=== PATIENT | female | born 1940 | race Caucasian/White ===

== ENCOUNTER 2018-01-24 13:38 | Emergency (ER) | payer MEDICARE ==
[~2018-01-24] VITALS: Ht 157.5 cm; Wt 62.3 kg
[2018-01-24 13:42] VITALS: TEMP 97.8
[2018-01-24] MEDS ORDERED: PROZAC 20MG20 MG PO (14:12)
[2018-01-24] MEDS ORDERED: NAPROSYN500 MG PO (14:12)
[2018-01-24] MEDS ORDERED: ASPIRIN 81M81 MG/TA2 PO (14:13)
[2018-01-24] MEDS ORDERED: ZYRTEC 10MG10 MG PO (14:13)
[2018-01-24] MEDS ORDERED: VALIUM 5MG T5 MG/TAB PO (14:14)
[2018-01-24 15:10] LABS: BASO # 0.1 (0.0-0.2); BASO % 1.2 % (0.0-2.0); EOS # 0.3 (0.0-0.7); EOS % 4.3 % (0-4.0); HEMOGLOBIN 13.1 g/dl (12.5-16.0); LYMPH # 2.7 (1.2-3.4); LYMPH % 34.7 % (20.0-51.0); MEAN CELL VOLUME 93 fl (80.0-100.0); MEAN CORPUSCULAR HEMOGLOBIN 32 pg (27.0-31.0); MEAN CORPUSCULAR HGB CONC 35 g/dl (33.0-37.0); MEAN PLATELET VOLUME 10.8 fl (7.4-10.4); MONO # 0.6 (0.1-0.6); MONO % 7.5 % (1.7-9.3); PLATELET COUNT 232 K/mm3 (130-400); RED BLOOD COUNT 4.09 M/mm3 (4.10-5.30); REDCELL DISTRIBUTION WIDTH-CV 12.2 % (11.5-14.5)
[2018-01-24 15:24] LABS: ALANINE AMINOTRANSFERASE 33 U/L (9-52); ALBUMIN 3.9 gm/dL (3.5-5.0); ALKALINE PHOSPHATASE 73 U/L (50-136); ANION GAP 11 mmol/L (7-16); AST,SGOT 29 U/L (15-37); BILIRUBIN,TOTAL 0.5 mg/dL (0.0-1.0); BLOOD UREA NITROGEN 15 mg/dL (7-17); CALCIUM 9.6 mg/dL (8.4-10.2); CARBON DIOXIDE 23 mmol/L (22-30); CHLORIDE 101 mmol/L (98-107); CREATININE, serum 0.64 mg/dL (0.52-1.25); GLUCOSE 91 mg/dL (74-106); POTASSIUM 3.8 mmol/L (3.4-5.0); SODIUM 135 mmol/L (137-145); TOTAL PROTEIN 7.5 gm/dL (6.4-8.2)
[2018-01-24 15:27] LABS: C-REACTIVE PROTEIN < 0.5 mg/dL (0.0-0.9)
[2018-01-24 15:32] LABS: ERYTHROCYTE SEDIMENTATION RATE 9 mm/hr (0-30); TROPONIN-I < 0.012 ng/mL (0.000-0.034)
[2018-01-24 17:34] VITALS: BP 1471/99; PULSE 80
== END 2018-01-24 17:36 | disposition home or self-care (01) ==
LOC: COL.ER 13:38
PROVIDERS: Emergency Medicine
DX: M54.12 Radiculopathy, cervical region (principal); F32.9 Major depressive disorder, single episode, unspecified; F41.9 Anxiety disorder, unspecified; Z79.82 Long term (current) use of aspirin

== ENCOUNTER 2018-03-31 10:54 | Emergency (ER) | payer MEDICARE ==
[~2018-03-31] VITALS: Ht 157.5 cm; Wt 61.4 kg
[~2018-03-31 10:54] MED LIST: ASPIRIN 81M81 MG/TA2 PO; NAPROSYN500 MG PO; PROZAC 20MG20 MG PO; VALIUM 5MG T5 MG/TAB PO; ZYRTEC 10MG10 MG PO
[2018-03-31 11:29] LABS: BASO # 0.1 (0.0-0.2); BASO % 1.9 % (0.0-2.0); EOS # 0.3 (0.0-0.7); GRAN # 2.2 (1.4-6.5); GRAN % 39.1 % (42.2-75.2); HEMATOCRIT 38.7 % (37.0-47.0); HEMOGLOBIN 13.3 g/dl (12.5-16.0); LYMPH # 2.4 (1.2-3.4); LYMPH % 42.4 % (20.0-51.0); MEAN CELL VOLUME 92 fl (80.0-100.0); MEAN CORPUSCULAR HEMOGLOBIN 32 pg (27.0-31.0); MEAN CORPUSCULAR HGB CONC 34 g/dl (33.0-37.0); MEAN PLATELET VOLUME 10.3 fl (7.4-10.4); MONO # 0.6 (0.1-0.6); MONO % 10.4 % (1.7-9.3); PLATELET COUNT 263 K/mm3 (130-400); REDCELL DISTRIBUTION WIDTH-CV 12.7 % (11.5-14.5)
[2018-03-31 11:39] LABS: ALBUMIN 4.1 gm/dL (3.5-5.0); BILIRUBIN,TOTAL 0.6 mg/dL (0.0-1.0); CALCIUM 9.5 mg/dL (8.4-10.2); CREATININE, serum 0.6 mg/dL (0.52-1.25); POTASSIUM 4.1 mmol/L (3.4-5.0); TOTAL PROTEIN 8.5 gm/dL (6.4-8.2)
[2018-03-31] MEDS ORDERED: ZOFRAN ODT4 MG PO (12:24)
[2018-03-31 12:56] VITALS: BP 143/77
[2018-03-31 13:20] VITALS: PULSE 80; TEMP 97.6
== END 2018-03-31 13:18 | disposition home or self-care (01) ==
LOC: COL.ER 10:54
PROVIDERS: Emergency Medicine
DX: S00.03XA Contusion of scalp, initial encounter (principal); W01.10XA Fall on same level from slipping, tripping and stumbling with subsequent striking against unspecified object, initial encounter

== ENCOUNTER 2018-03-31 18:02 | Emergency (ER) | payer MEDICARE ==
[~2018-03-31] VITALS: Ht 157.5 cm; Wt 61.4 kg
[~2018-03-31 18:02] MED LIST changes: +ZOFRAN ODT4 MG PO
[2018-03-31 18:16] VITALS: BP 150/72; TEMP 98.1
[2018-03-31 21:24] VITALS: PULSE 72
== END 2018-03-31 20:30 | disposition home or self-care (01) ==
LOC: COL.ER 18:02
DX: S80.12XA Contusion of left lower leg, initial encounter (principal); R11.0 Nausea; F32.9 Major depressive disorder, single episode, unspecified; W10.9XXA Fall (on) (from) unspecified stairs and steps, initial encounter; Y92.22 Religious institution as the place of occurrence of the external cause

== ENCOUNTER → 2018-04-16 | Outpatient (CLI) | payer MEDICARE | LOC: MC.RAD 14:00 | DX: Z12.31 Encounter for screening mammogram for malignant neoplasm of breast (principal) ==

== ENCOUNTER 2018-04-29 10:00 | Outpatient (RCR) | payer MEDICARE | END 2018-05-14 | disposition home or self-care (01) | LOC: MKS.ESL.PT | DX: R53.1 Weakness (principal) | CPT/HCPCS: G8978-GP; G8979-GP ==

== ENCOUNTER → 2019-12-26 | Outpatient (CLI) | payer MEDICARE | LOC: MC.RAD 11-24 15:30 | DX: Z12.31 Encounter for screening mammogram for malignant neoplasm of breast (principal) ==

== ENCOUNTER 2021-02-18 10:21 | Outpatient (RCR) | payer MEDICARE ==
[~2021-02-18 10:21] MED LIST changes: +CENTRUM SILVER1 CTB PO; +FOLIKA-NC TABL1 EACH PO; +TURMERIC500 MG PO; +VITAMIN D31000 I1 PO; +VITAMINC1000TA PO
== END 2021-05-19 | disposition home or self-care (01) ==
LOC: MKS.ESL.PT
DX: R53.81 Other malaise (principal)

== ENCOUNTER 2021-05-28 13:17 | Emergency (ER) | payer MEDICARE ==
[~2021-05-28] VITALS: Ht 154.9 cm; Wt 65.9 kg
[2021-05-28 13:29] VITALS: TEMP 97.9
[2021-05-28] MEDS ORDERED: NORVASC 5MG5 MG/TAB PO (13:40)
[2021-05-28] MEDS ORDERED: GARLIC100 MG PO (13:43)
[2021-05-28 14:31] LABS: BASO # 0.1 (0.0-0.2); BASO % 1.2 % (0.0-2.0); EOS # 0.3 (0.0-0.7); EOS % 3.9 % (0-4.0); GRAN # 4.2 (1.4-6.5); GRAN % 57.9 % (42.2-75.2); HEMATOCRIT 39.6 % (37.0-47.0); HEMOGLOBIN 13.1 g/dl (12.5-16.0); LYMPH # 1.9 (1.2-3.4); LYMPH % 26.6 % (20.0-51.0); MEAN CELL VOLUME 95 fl (80.0-100.0); MEAN CORPUSCULAR HEMOGLOBIN 31 pg (27.0-31.0); MEAN CORPUSCULAR HGB CONC 33 g/dl (33.0-37.0); MEAN PLATELET VOLUME 11.2 fl (7.4-10.4); MONO # 0.7 (0.1-0.6); MONO % 10.1 % (1.7-9.3); PLATELET COUNT 290 K/mm3 (130-400); RED BLOOD COUNT 4.19 M/mm3 (4.10-5.30); REDCELL DISTRIBUTION WIDTH-CV 13.1 % (11.5-14.5)
[2021-05-28 14:45] LABS: ALBUMIN 4.4 gm/dL (3.5-5.0); BILIRUBIN,TOTAL 0.5 mg/dL (0.0-1.0); CALCIUM 9.2 mg/dL (8.4-10.2); CREATININE, serum 0.6 (0.52-1.25); TOTAL PROTEIN 8.2 gm/dL (6.4-8.2)
[2021-05-28 15:59] LABS: COLLECTION METHOD CLEAN CATCH
[2021-05-28 16:17] LABS: MUCOUS Present /lpf; PH 8 (5-8); SQUAMOUS EPITHELIAL 0-2 /hpf; URINE APPEARANCE Hazy; URINE BACTERIA None Seen /hpf; URINE BILIRUBIN Negative (NEGATIVE); URINE BLOOD Negative (NEGATIVE); URINE COLOR Amber; URINE GLUCOSE Negative (NEGATIVE); URINE KETONE Negative (NEGATIVE); URINE LEUKOCYTE ESTERASE Negative (NEGATIVE); URINE NITRATE Negative (NEGATIVE); URINE PROTEIN(semi-quant) 1+ (NEGATIVE)
[2021-05-28 17:11] VITALS: BP 129/64; PULSE 73
== END 2021-05-28 17:11 | disposition home or self-care (01) ==
LOC: COL.ER 13:17
PROVIDERS: Personal Emergency Response Attendant
DX: R10.9 Unspecified abdominal pain (principal); R07.81 Pleurodynia; I10 Essential (primary) hypertension; F32.9 Major depressive disorder, single episode, unspecified; Z79.899 Other long term (current) drug therapy
CPT/HCPCS: J1885; J2405; J7030

== ENCOUNTER → 2021-09-20 | Outpatient (CLI) | payer MEDICARE ==
[~2021-09-20] MED LIST changes: +GARLIC100 MG PO; +NORVASC 5MG5 MG/TAB PO
== END ==
LOC: MC.RAD 15:30
DX: Z12.31 Encounter for screening mammogram for malignant neoplasm of breast (principal)

== ENCOUNTER 2022-02-24 08:30 | Outpatient (RCR) | payer MEDICARE ==
[~2022-02-24 08:30] MED LIST changes: +VITAMIN C500 MG PO; -VITAMINC1000TA PO
== END 2022-02-25 | disposition home or self-care (01) ==
LOC: MKS.ESL.PT
DX: M25.519 Pain in unspecified shoulder (principal); G89.29 Other chronic pain

== ENCOUNTER 2022-02-28 14:21 | Outpatient (CLI) | payer MEDICARE ==
[~2022-02-28] VITALS: Ht 154.9 cm; Wt 64.0 kg
[2022-02-28 15:13] VITALS: BP 138/79; PULSE 70; TEMP 96.9
== END 2022-02-28 16:51 | disposition home or self-care (01) ==
LOC: EUO 14:21
DX: M81.0 Age-related osteoporosis without current pathological fracture (principal)
CPT/HCPCS: J3489

== ENCOUNTER 2022-03-20 16:00 | Outpatient (RCR) | payer MEDICARE | END 2022-03-20 17:22 | disposition home or self-care (01) | LOC: MKS.ESL.PT 16:00 | DX: M25.519 Pain in unspecified shoulder (principal); G89.29 Other chronic pain ==

== ENCOUNTER → 2022-11-23 | Outpatient (CLI) | payer MEDICARE | LOC: COL.RAD 13:00 | DX: R06.09 Other forms of dyspnea (principal) | CPT/HCPCS: Q9967 ==

== ENCOUNTER 2024-04-03 05:03 | Observation (INO) | payer MEDICARE ==
[~2024-04-03 05:03] MED LIST changes: +CRESTOR 10MG10 MG PO
[2024-04-03] MEDS ORDERED: Iohexol 300 - 100 ML VIAL IV ONE (05:20)
== END 2024-04-03 15:50 | disposition home or self-care (01) ==
LOC: COL.ER 05:03 → MEDICAL 07:40
PROVIDERS: ADMIT Internal Medicine
DX: R06.00 Dyspnea, unspecified (principal)
CPT/HCPCS: A9500-JZ; Q9967